=== PATIENT | female | born 1960 | race Caucasian/White ===

== ENCOUNTER 2016-04-11 16:43 | Inpatient (IN) | payer OTHER ==
[~2016-04-11] VITALS: Ht 160 cm; Wt 85.5 kg
[~2016-04-11 16:43] MED LIST: AMLODIPINE BESY10 MG PO; ASPIR 8181 M1 PO; ASPIRIN81 M2 PO; ATORVASTATIN CA40 MG PO; AUGMENTIN500 MG PO; Aspirin E.C. PO; BENTYL20 MG PO; BUPROPION HCL75 MG PO; CALCIUM ACETAT667 MG PO; CARAFATE1 GM PO; CARDIZEM CD120 MG PO; CARVEDILOL3.125 MG PO; CHANTIX0.5 MG PO; COLACE100 MG PO; COREG3.125 M1 PO; COUMADIN1 MG PO; CYANOCOBALAM1000 MCG PO; Colace PO; Coreg PO; DIALYVITE 3,001 EACH PO; DIALYVITE 801 TABLET PO; DIALYVITE TABL1 EACH PO; EMLA TP; EXCEDRIN MIGRA1 EAC3 PO; Ecotrin PO; FLAGYL500 MG PO; FUROSEMIDE40 MG PO; Folvite PO; GERD MEDICINE; LASIX20 MG PO; LIDOCAINE TD; LIDOCAINE-PRIL1 EACH TP; LIPITOR40 MG PO; LO-DOSE ASPIRIN81 M1 PO; LOPRESSOR25 MG PO; Lasix PO; Lipitor PO; MACROBID100 MG PO; MEDROL DOSE PACK PO; NITROSTAT0.4 MG SL; NORVASC10 MG PO; Norvasc PO; PANTOPRAZOLE SO40 MG PO; PRILOSEC OTC20 MG PO; PROTONIX40 MG PO; Phoslo PO; RENVELA800 MG PO; SENSIPAR30 MG PO; SENSIPAR60 MG PO; SENSIPAR90 MG PO; SODIUM BICARBO325 M1 PO; SODIUM BICARBO325 MG PO; SODIUM BICARBONATE; Sensipar PO; Sodium Bicarbonate PO; Topamax PO; VENTOLIN HFA18 GM IH; VITAMIN D2000 UNI1 PO; VITAMIN D250000 UNIT PO; VITAMIN D5000 INTUN PO; ZANTAC150 MG PO; ZITHROMAX Z-PA250 MG PO; ZOFRAN ODT8 MG PO; Zestril,Prinivil PO; Zocor PO
[2016-04-11 18:23] LABS: HEMATOCRIT 28.3 % (36.0-46.0); MCH 33.9 PG (29.0-34.0); MCHC 32.5 G/DL (30.0-36.0); MCV 104.4 FL (83-99); MEAN PLAT.VOLUME 9.3 uM^3 (9.5-12.4); PLATELET COUNT 213 K/uL (156-360); RBC DIS.WIDTH-CV 18.1 % (11.8-14.6); RBC DIS.WIDTH-SD 66.5 % (39-53); RED BLOOD COUNT 2.71 M/uL (3.80-5.20); WHITE BLOOD COUNT 9.5 K/uL (4.1-10.2)
[2016-04-11 18:34] LABS: CHLORIDE 91 mEq/L (99-109); POTASSIUM 4.6 mEq/L (3.7-5.4); SODIUM 136 mEq/L (136-147)
[2016-04-11 18:36] LABS: GLUCOSE 140 mg/dL (70-99)
[2016-04-11 18:37] LABS: ANION GAP 23 MEQ/L (2-14)
[2016-04-11 18:38] LABS: TOTAL BILIRUBIN 0.4 mg/dL (0.0-1.0)
[2016-04-11 18:39] LABS: ALKALINE PHOSPHATASE 63 IU/L (3-129)
[2016-04-11 18:40] LABS: GFR ESTIMATE (CALCULATED) 5 mL/min/
[2016-04-11 18:41] LABS: UREA NITROGEN (BUN) 79 mg/dL (9-23)
[2016-04-11 19:13] LABS: INFLUENZA A VIRAL ANTIGEN NEGATIVE; INFLUENZA B VIRAL ANTIGEN NEGATIVE
[2016-04-11 19:49] LABS: PROTHROMBIN TIME 21.3 (9.2-11.2)
[2016-04-11] MEDS ORDERED: COUMADIN1 MG PO (22:02)
[2016-04-11] MEDS ORDERED: LOPRESSOR25 MG PO (22:03)
[2016-04-11] MEDS ORDERED: DILTIAZEM 24HR120 MG PO (22:03)
[2016-04-11] MEDS ORDERED: COUMADIN5 MG PO (22:03)
[2016-04-11] MEDS ORDERED: NIACIN500 M4 PO (22:04)
[2016-04-11] MEDS ORDERED: TOPAMAX50 MG PO (22:04)
[2016-04-11 23:26] VITALS: BP 98/50
[2016-04-12 00:45] VITALS: BP 122/64
[2016-04-12 00:55] VITALS: BP 122/64
[2016-04-12 03:01] VITALS: BP 122/55
[2016-04-12 05:31] LABS: HEMATOCRIT 23.9 % (36.0-46.0); MCV 104.8 FL (83-99)
[2016-04-12 05:34] LABS: INTER. NORMALIZED RATIO 1.3; PROTHROMBIN TIME 13.3 (9.2-11.2)
[2016-04-12 05:39] LABS: ANION GAP 22 MEQ/L (2-14); CHLORIDE 89 MEQ/L (99-109); GFR ESTIMATE (CALCULATED) 4 mL/min/; POTASSIUM 3.8 MEQ/L (3.7-5.4); SAMPLE HEMOLYSIS CHECK 0; SAMPLE ICTERIC CHECK 0; SAMPLE LIPEMIA CHECK 0; SODIUM 138 MEQ/L (136-147); UREA NITROGEN (BUN) 85 mg/dL (9-23)
[2016-04-12 05:40] LABS: GLUCOSE 97 mg/dL (70-99)
[2016-04-12 06:30] LABS: POINT-OF-CARE METER ID UU14174225
[2016-04-12 14:49] LABS: FERRITIN 1979 NG/ML (10-291)
[2016-04-12 18:04] VITALS: BP 122/67
[2016-04-12 20:22] LABS: HEMATOCRIT 32.9 % (36.0-46.0)
[2016-04-12 20:47] VITALS: BP 116/56
[2016-04-12 23:28] VITALS: BP 109/57
[2016-04-13 04:00] VITALS: BP 109/75
[2016-04-13 07:08] LABS: HEMATOCRIT 31.6 % (36.0-46.0); MCH 33.1 PG (29.0-34.0); MCHC 33.2 G/DL (30.0-36.0); MCV 99.7 FL (83-99); MEAN PLAT.VOLUME 9.3 uM^3 (9.5-12.4); PLATELET COUNT 187 K/uL (156-360); RBC DIS.WIDTH-SD 70.4 % (39-53); RED BLOOD COUNT 3.17 M/uL (3.80-5.20); WHITE BLOOD COUNT 7.7 K/uL (4.1-10.2)
[2016-04-13 07:14] LABS: EOSINOPHIL (%) 5.1 % (0-5); EOSINOPHIL COUNT 0.4 K/uL (0-0.3); IMMATURE GRANULOCYTE (%) 0.4 % (0.0-0.7); IMMATURE GRANULOCYTE COUNT 0.3 K/uL; LYMPHOCYTE COUNT 1.6 K/uL (1.0-2.8); MONOCYTE (%) 8.1 % (3-12); MONOCYTE COUNT 0.6 K/uL (0-0.8); NEUTROPHIL (%) 65.7 % (45-76); NEUTROPHIL COUNT 5.1 K/uL (1.8-6.4)
[2016-04-13 07:35] LABS: ANION GAP 16 MEQ/L (2-14); CHLORIDE 96 MEQ/L (99-109); GFR ESTIMATE (CALCULATED) 7 mL/min/; GLUCOSE 103 mg/dL (70-99); POTASSIUM 4.4 MEQ/L (3.7-5.4); SAMPLE HEMOLYSIS CHECK 0; SAMPLE ICTERIC CHECK 0; SAMPLE LIPEMIA CHECK 0; SODIUM 141 MEQ/L (136-147)
[2016-04-13 07:36] LABS: UREA NITROGEN (BUN) 41 mg/dL (9-23)
[2016-04-13 08:28] VITALS: BP 134/62
[2016-04-13 11:04] LABS: POINT-OF-CARE METER ID UU14174225
[2016-04-13 12:08] VITALS: BP 123/69
[2016-04-13 14:19] LABS: MAGNESIUM 2.2 mg/dl (1.3-2.7)
[2016-04-13 15:00] VITALS: BP 130/74
[2016-04-13 20:48] VITALS: BP 144/71
[2016-04-13 23:38] VITALS: BP 145/79
[2016-04-14 04:48] VITALS: BP 141/72
[2016-04-14 07:11] LABS: HEMATOCRIT 30.8 % (36.0-46.0); MCH 31.1 PG (29.0-34.0); MCHC 31.2 G/DL (30.0-36.0); MCV 99.7 FL (83-99); MEAN PLAT.VOLUME 9.2 uM^3 (9.5-12.4); PLATELET COUNT 169 K/uL (156-360); RBC DIS.WIDTH-SD 71.5 % (39-53); RED BLOOD COUNT 3.09 M/uL (3.80-5.20); WHITE BLOOD COUNT 7.3 K/uL (4.1-10.2)
[2016-04-14 07:41] LABS: ANION GAP 16 MEQ/L (2-14); CHLORIDE 94 MEQ/L (99-109); GFR ESTIMATE (CALCULATED) 5 mL/min/; GLUCOSE 97 mg/dL (70-99); POTASSIUM 3.9 MEQ/L (3.7-5.4); SAMPLE HEMOLYSIS CHECK 0; SAMPLE ICTERIC CHECK 0; SAMPLE LIPEMIA CHECK 0; SODIUM 137 MEQ/L (136-147); UREA NITROGEN (BUN) 47 mg/dL (9-23)
[2016-04-14 07:55] VITALS: BP 143/69
[2016-04-14 11:03] VITALS: BP 147/70
[2016-04-14 20:06] VITALS: BP 136/71
[2016-04-15] VITALS: BP 146/73
[2016-04-15 04:11] VITALS: BP 145/72
[2016-04-15 06:17] LABS: HEMATOCRIT 31.5 % (36.0-46.0); MCH 31.9 PG (29.0-34.0); MCHC 31.4 G/DL (30.0-36.0); MCV 101.6 FL (83-99); MEAN PLAT.VOLUME 9.6 uM^3 (9.5-12.4); PLATELET COUNT 173 K/uL (156-360); RBC DIS.WIDTH-CV 19.6 % (11.8-14.6); RBC DIS.WIDTH-SD 71.2 % (39-53); WHITE BLOOD COUNT 7.8 K/uL (4.1-10.2)
[2016-04-15 06:49] LABS: ANION GAP 13 MEQ/L (2-14); CHLORIDE 97 MEQ/L (99-109); GFR ESTIMATE (CALCULATED) 8 mL/min/; GLUCOSE 106 mg/dL (70-99); SAMPLE HEMOLYSIS CHECK 0; SAMPLE ICTERIC CHECK 0; SAMPLE LIPEMIA CHECK 0; SODIUM 137 MEQ/L (136-147)
[2016-04-15 06:55] LABS: UREA NITROGEN (BUN) 21 mg/dL (9-23)
[2016-04-15 08:34] VITALS: BP 140/79
[2016-04-15] MEDS ORDERED: IRON325 MG PO (08:56)
[2016-04-15] MEDS ORDERED: RENVELA800 MG PO (08:56)
== END 2016-04-15 10:29 | disposition home or self-care (01) | DRG 377 ==
LOC: EME 16:43 → 5SOUTH 23:14 → EDOF 23:14 → 5SOUTH 04-12 00:31
PROVIDERS: Hospitalist; Internal Medicine Nephrology; Nurse Practitioner Family; Specialist
PROC: 30233N1 Transfusion of Nonautologous Red Blood Cells into Peripheral Vein, Percutaneous Approach (ICD-10-PCS; principal; 2016-04-12)
PROC: 30233K1 Transfusion of Nonautologous Frozen Plasma into Peripheral Vein, Percutaneous Approach (ICD-10-PCS; principal; 2016-04-12)
PROC: 5A1D60Z (ICD-10-PCS; principal; 2016-04-12)
PROC: 0DBN8ZZ Excision of Sigmoid Colon, Via Natural or Artificial Opening Endoscopic (ICD-10-PCS; principal; 2016-04-12)
PROC: 0DJ08ZZ Inspection of Upper Intestinal Tract, Via Natural or Artificial Opening Endoscopic (ICD-10-PCS; principal; 2016-04-12)
DX: K29.01 Acute gastritis with bleeding (principal); N18.6 End stage renal disease; I12.0 Hypertensive chronic kidney disease with stage 5 chronic kidney disease or end stage renal disease; I42.9 Cardiomyopathy, unspecified; E66.01 Morbid (severe) obesity due to excess calories; D63.1 Anemia in chronic kidney disease; J44.9 Chronic obstructive pulmonary disease, unspecified; G47.30 Sleep apnea, unspecified; K44.9 Diaphragmatic hernia without obstruction or gangrene; K29.80 Duodenitis without bleeding; I48.0 Paroxysmal atrial fibrillation; J02.9 Acute pharyngitis, unspecified; Z99.2 Dependence on renal dialysis; E78.5 Hyperlipidemia, unspecified; K22.70 Barrett's esophagus without dysplasia; F17.210 Nicotine dependence, cigarettes, uncomplicated; K63.5 Polyp of colon; K64.8 Other hemorrhoids; D50.0 Iron deficiency anemia secondary to blood loss (chronic); Z68.33 Body mass index [BMI] 33.0-33.9, adult; Z79.01 Long term (current) use of anticoagulants; Z90.49 Acquired absence of other specified parts of digestive tract
CPT/HCPCS: 71020; 80048; 80053; 80069; 82728; 82746; 82948; 83735; 84466; 85002; 85014; 85018; 85025; 85027; 85610; 86850; 86900; 86901; 86920; 87502; 88305; 93005; 94640; 99202; 99281; 99285; B4087; C9113; J2405; J3430; J7050; P9016; P9017

== ENCOUNTER 2016-06-03 19:57 | Emergency (ER) | payer OTHER ==
[~2016-06-03] VITALS: Ht 160 cm; Wt 88.3 kg
[~2016-06-03 19:57] MED LIST changes: +COUMADIN5 MG PO; +DILTIAZEM 24HR120 MG PO; +IRON325 MG PO; +NIACIN500 M4 PO; +TOPAMAX50 MG PO
[2016-06-03 22:30] VITALS: BP 132/68
== END 2016-06-03 22:30 | disposition home or self-care (01) ==
LOC: EME 19:57
DX: M79.651 Pain in right thigh (principal); M25.561 Pain in right knee; I12.0 Hypertensive chronic kidney disease with stage 5 chronic kidney disease or end stage renal disease; N18.6 End stage renal disease; Z99.2 Dependence on renal dialysis; E78.5 Hyperlipidemia, unspecified; Z87.891 Personal history of nicotine dependence
CPT/HCPCS: 93971; 99281; 99284

== ENCOUNTER 2016-09-14 16:32 | Inpatient (IN) | payer OTHER ==
[~2016-09-14] VITALS: Ht 160 cm; Wt 80.3 kg
[2016-09-14 17:06] LABS: HEMATOCRIT 24.8 % (36.0-46.0); MCH 32.1 PG (29.0-34.0); MCHC 31.5 G/DL (30.0-36.0); MEAN PLAT.VOLUME 9.7 uM^3 (9.5-12.4); PLATELET COUNT 272 K/uL (156-360); RBC DIS.WIDTH-CV 13.5 % (11.8-14.6); RBC DIS.WIDTH-SD 50.7 % (39-53); RED BLOOD COUNT 2.43 M/uL (3.80-5.20)
[2016-09-14 17:15] LABS: MCV 102.1 FL (83-99)
[2016-09-14 17:17] LABS: CHLORIDE 106 mEq/L (99-109); POTASSIUM 4.2 mEq/L (3.7-5.4); SODIUM 132 mEq/L (136-147)
[2016-09-14 17:19] LABS: GLUCOSE 143 mg/dL (70-99)
[2016-09-14 17:20] LABS: ANION GAP 10 MEQ/L (2-14)
[2016-09-14 17:23] LABS: GFR ESTIMATE (CALCULATED) 45 mL/min/
[2016-09-14 17:24] LABS: UREA NITROGEN (BUN) 13 mg/dL (9-23)
[2016-09-14] MEDS ORDERED: ONE-A-DAY ESSE1 EAC1 PO (20:41)
[2016-09-14] MEDS ORDERED: FOLIC ACID1 MG PO (20:42)
[2016-09-14] MEDS ORDERED: ELAVIL10 MG PO (20:42)
[2016-09-14] MEDS ORDERED: CLOTRIMAZOLE10 MG PO (20:42)
[2016-09-14] MEDS ORDERED: SLOW-MAG,MAG DE64 MG PO (20:43)
[2016-09-14] MEDS ORDERED: MYFORTIC360 MG PO (20:43)
[2016-09-14] MEDS ORDERED: VALCYTE450 MG PO (20:43)
[2016-09-14] MEDS ORDERED: SENNA8.6 MG PO (20:44)
[2016-09-14] MEDS ORDERED: ASTAGRAF XL1 MG PO (20:44)
[2016-09-14] MEDS ORDERED: DAPSONE100 MG PO (20:44)
[2016-09-14] MEDS ORDERED: COLACE100 MG PO (20:44)
[2016-09-14] MEDS ORDERED: NOVOLOG 10100 UNITS/ SC (20:45)
[2016-09-14] MEDS ORDERED: CALCITRIOL0.25 MCG PO (20:46)
[2016-09-14] MEDS ORDERED: BUTALB-APAP-CA1 EACH PO (20:46)
[2016-09-14] MEDS ORDERED: LO-DOSE ASPIRIN81 M2 PO (20:48)
[2016-09-15] VITALS (8 sets, daily range): BP systolic 123–161; BP diastolic 60–78
[2016-09-15 00:35] LABS: TOTAL BILIRUBIN 0.4 mg/dL (0.0-1.0)
[2016-09-15 00:36] LABS: ALKALINE PHOSPHATASE 131 IU/L (3-129)
[2016-09-15 00:39] LABS: DIRECT BILIRUBIN 0.2 mg/dL (0.0-0.3); URIC ACID 6.4 mg/dL (3.1-9.2)
[2016-09-15 06:23] LABS: HEMATOCRIT 20.2 % (36.0-46.0); MCH 32.1 PG (29.0-34.0); MCHC 31.2 G/DL (30.0-36.0); MCV 103.1 FL (83-99); MEAN PLAT.VOLUME 10.1 uM^3 (9.5-12.4); PLATELET COUNT 243 K/uL (156-360); RBC DIS.WIDTH-CV 13.6 % (11.8-14.6); RBC DIS.WIDTH-SD 51.8 % (39-53); RED BLOOD COUNT 1.96 M/uL (3.80-5.20); WHITE BLOOD COUNT 11.9 K/uL (4.1-10.2)
[2016-09-15 06:26] LABS: D-DIMER ELISA 3.58 mg/L FEU (< 0.57)
[2016-09-15 06:49] LABS: ANION GAP 9 MEQ/L (2-14); CHLORIDE 111 MEQ/L (99-109); GFR ESTIMATE (CALCULATED) 55 mL/min/; GLUCOSE 120 mg/dL (70-99); POTASSIUM 4.3 MEQ/L (3.7-5.4); SAMPLE HEMOLYSIS CHECK 0; SAMPLE ICTERIC CHECK 0; SAMPLE LIPEMIA CHECK 0; SODIUM 137 MEQ/L (136-147); UREA NITROGEN (BUN) 13 mg/dL (9-23)
[2016-09-15 14:56] LABS: IRON 13 MCG/DL (35-150)
[2016-09-15 18:53] LABS: ADD MIUA? YES; BILIRUBIN NEGATIVE; BLOOD NEGATIVE; COLOR YELLOW ((YELLOW)); GLUCOSE (STRIP) NEGATIVE; KETONES NEGATIVE; LEUKOCYTES NEGATIVE; NITRITE NEGATIVE; PROTEIN (STRIP) 30; SPECIFIC GRAVITY 1.024 (1.000-1.030); UROBILINOGEN 0.2 MG/DL (0.2-1.0)
[2016-09-15 18:54] LABS: ADD MIUA? YES; BILIRUBIN NEGATIVE; BLOOD NEGATIVE; COLOR YELLOW ((YELLOW)); GLUCOSE (STRIP) NEGATIVE; KETONES NEGATIVE; LEUKOCYTES NEGATIVE; NITRITE NEGATIVE; PROTEIN (STRIP) 30; SPECIFIC GRAVITY 1.024 (1.000-1.030); UROBILINOGEN 0.2 MG/DL (0.2-1.0)
[2016-09-15 19:05] LABS: BACTERIA RARE /HPF; EPITHELIAL CELLS 1+ /HPF; MUCUS TRACE /LPF; RED BLOOD CELLS 0-5 /HPF (0-5); WHITE BLOOD CELLS 0-5 /HPF (0-5)
[2016-09-16] VITALS (11 sets, daily range): BP systolic 102–159; BP diastolic 56–76
[2016-09-16 07:11] LABS: EOSINOPHIL (%) 0.2 % (0-5); HEMATOCRIT 24.3 % (36.0-46.0); IMMATURE GRANULOCYTE (%) 1.4 % (0.0-0.7); IMMATURE GRANULOCYTE COUNT 0.1 K/uL; INSTRUMENT ABS NEUTROPHIL CT 8.4 K/uL; LYMPHOCYTE COUNT 0.1 K/uL (1.0-2.8); MCH 32.4 PG (29.0-34.0); MCHC 32.5 G/DL (30.0-36.0); MCV 99.6 FL (83-99); MONOCYTE (%) 7.2 % (3-12); MONOCYTE COUNT 0.7 K/uL (0-0.8); NEUTROPHIL (%) 90.6 % (45-76); NEUTROPHIL COUNT 8.4 K/uL (1.8-6.4); RBC DIS.WIDTH-CV 15.1 % (11.8-14.6); RBC DIS.WIDTH-SD 54.8 % (39-53); WHITE BLOOD COUNT 9.3 K/uL (4.1-10.2)
[2016-09-16 07:12] LABS: RED BLOOD COUNT 2.44 M/uL (3.80-5.20)
[2016-09-16 07:24] LABS: ALKALINE PHOSPHATASE 118 IU/L (3-129); ANION GAP 9 MEQ/L (2-14); CHLORIDE 111 MEQ/L (99-109); GFR ESTIMATE (CALCULATED) 49 mL/min/; GLUCOSE 108 mg/dL (70-99); MAGNESIUM 0.9 mg/dl (1.3-2.7); POTASSIUM 3.9 MEQ/L (3.7-5.4); SAMPLE HEMOLYSIS CHECK 0; SAMPLE ICTERIC CHECK 0; SAMPLE LIPEMIA CHECK 0; SODIUM 136 MEQ/L (136-147); TOTAL BILIRUBIN 0.6 MG/DL (0.0-1.0); UREA NITROGEN (BUN) 13 mg/dL (9-23); URIC ACID 4.3 mg/dL (3.1-9.2)
[2016-09-16 07:36] LABS: MEAN PLAT.VOLUME 10.3 uM^3 (9.5-12.4); PLAT.SUFFICIENCY ADEQUATE
[2016-09-16 07:38] LABS: PLATELET COUNT 169 K/uL (156-360)
[2016-09-17 02:59] VITALS: BP 126/60
[2016-09-17 07:18] LABS: HEMATOCRIT 26.8 % (36.0-46.0); MCH 31.9 PG (29.0-34.0); MCHC 32.1 G/DL (30.0-36.0); MCV 99.3 FL (83-99); MEAN PLAT.VOLUME 10.2 uM^3 (9.5-12.4); RBC DIS.WIDTH-SD 55.1 % (39-53); WHITE BLOOD COUNT 11.9 K/uL (4.1-10.2)
[2016-09-17 07:19] LABS: PLATELET COUNT 223 K/uL (156-360)
[2016-09-17 07:33] LABS: ANION GAP 10 MEQ/L (2-14); CHLORIDE 111 MEQ/L (99-109); GFR ESTIMATE (CALCULATED) 41 mL/min/; GLUCOSE 135 mg/dL (70-99); MAGNESIUM 1.5 mg/dl (1.3-2.7); POTASSIUM 3.5 MEQ/L (3.7-5.4); SAMPLE HEMOLYSIS CHECK 0; SAMPLE ICTERIC CHECK 0; SAMPLE LIPEMIA CHECK 0; SODIUM 137 MEQ/L (136-147); UREA NITROGEN (BUN) 18 mg/dL (9-23)
[2016-09-17 09:59] VITALS: BP 130/63
[2016-09-17 16:33] VITALS: BP 149/72
== END 2016-09-17 22:25 | disposition short-term general hospital (02) | DRG 919 ==
LOC: EME 16:32 → 5EAST 23:01 → EDOF 23:01 → 5EAST 09-15 02:49
PROVIDERS: Emergency Medicine; Hospitalist; Internal Medicine; Internal Medicine Nephrology
DX: T81.32XA Disruption of internal operation (surgical) wound, not elsewhere classified, initial encounter (principal); I13.2 Hypertensive heart and chronic kidney disease with heart failure and with stage 5 chronic kidney disease, or end stage renal disease; A41.9 Sepsis, unspecified organism; N17.9 Acute kidney failure, unspecified; I48.0 Paroxysmal atrial fibrillation; E86.0 Dehydration; T86.13 Kidney transplant infection; N18.6 End stage renal disease; N99.842 Postprocedural seroma of a genitourinary system organ or structure following a genitourinary system procedure; Y83.0 Surgical operation with transplant of whole organ as the cause of abnormal reaction of the patient, or of later complication, without mention of misadventure at the time of the procedure; D53.9 Nutritional anemia, unspecified; D35.00 Benign neoplasm of unspecified adrenal gland; E66.01 Morbid (severe) obesity due to excess calories; E78.5 Hyperlipidemia, unspecified; E83.42 Hypomagnesemia; E87.2 Acidosis; G47.30 Sleep apnea, unspecified; I50.22 Chronic systolic (congestive) heart failure; I42.9 Cardiomyopathy, unspecified; J44.9 Chronic obstructive pulmonary disease, unspecified; K21.9 Gastro-esophageal reflux disease without esophagitis; Z82.0 Family history of epilepsy and other diseases of the nervous system; Z83.3 Family history of diabetes mellitus; Z87.891 Personal history of nicotine dependence; R91.1 Solitary pulmonary nodule; J90 Pleural effusion, not elsewhere classified
CPT/HCPCS: 71010; 74176; 78582; 80048; 80053; 80069; 80076; 80197 90; 80202; 81003; 82436; 82565; 82607; 82746; 83540; 83605; 83735; 84100; 84133; 84300; 84466; 84520; 84550; 85025; 85027; 85379; 86900; 86901; 86920; 87040; 87070; 87075; 87076; 87077; 87147; 87186; 87205; 87801; 99281; 99285; A9540; A9567; C9113; J1644; J2405; J2543; J2765; J3370; J3475; J7030; J7050; J7120; J7518; P9016

== ENCOUNTER 2017-02-20 18:30 | Emergency (ER) | payer OTHER ==
[~2017-02-20] VITALS: Ht 160 cm; Wt 77.7 kg
[~2017-02-20 18:30] MED LIST changes: +ASTAGRAF XL1 MG PO; +BUTALB-APAP-CA1 EACH PO; +CALCITRIOL0.25 MCG PO; +CLOTRIMAZOLE10 MG PO; +DAPSONE100 MG PO; +ELAVIL10 MG PO; +FOLIC ACID1 MG PO; +LO-DOSE ASPIRIN81 M2 PO; +MYFORTIC360 MG PO; +NOVOLOG 10100 UNITS/ SC; +ONE-A-DAY ESSE1 EAC1 PO; +SENNA8.6 MG PO; +SLOW-MAG,MAG DE64 MG PO; +VALCYTE450 MG PO
[2017-02-20 20:07] LABS: EOSINOPHIL COUNT 0.1 K/uL (0-0.3); HEMATOCRIT 34.6 % (36.0-46.0); IMMATURE GRANULOCYTE (%) 1.6 % (0.0-0.7); IMMATURE GRANULOCYTE COUNT 0.1 K/uL; INSTRUMENT ABS NEUTROPHIL CT 3.7 K/uL; LYMPHOCYTE COUNT 0.3 K/uL (1.0-2.8); MCH 28.7 PG (29.0-34.0); MCHC 30.1 G/DL (30.0-36.0); MCV 95.6 FL (83-99); MEAN PLAT.VOLUME 11.2 uM^3 (9.5-12.4); MONOCYTE (%) 8.1 % (3-12); MONOCYTE COUNT 0.4 K/uL (0-0.8); NEUTROPHIL (%) 82.5 % (45-76); NEUTROPHIL COUNT 3.7 K/uL (1.8-6.4); PLATELET COUNT 124 K/uL (156-360); RBC DIS.WIDTH-CV 13.8 % (11.8-14.6); RBC DIS.WIDTH-SD 48.6 % (39-53); RED BLOOD COUNT 3.62 M/uL (3.80-5.20); WHITE BLOOD COUNT 4.5 K/uL (4.1-10.2)
[2017-02-20 20:16] LABS: CHLORIDE 110 mEq/L (99-109); POTASSIUM 3.7 mEq/L (3.7-5.4); SODIUM 138 mEq/L (136-147)
[2017-02-20 20:17] LABS: GLUCOSE 116 mg/dL (70-99)
[2017-02-20 20:19] LABS: ANION GAP 9 MEQ/L (2-14)
[2017-02-20 20:21] LABS: GFR ESTIMATE (CALCULATED) 49 mL/min/
[2017-02-20 20:22] LABS: UREA NITROGEN (BUN) 9 mg/dL (9-23)
[2017-02-20] MEDS ORDERED: KEFLEX500 MG PO (20:29)
[2017-02-20 20:43] VITALS: BP 144/69
== END 2017-02-20 20:44 | disposition home or self-care (01) ==
LOC: EME 18:30
PROVIDERS: Physician Assistant
DX: L03.115 Cellulitis of right lower limb (principal); I13.0 Hypertensive heart and chronic kidney disease with heart failure and stage 1 through stage 4 chronic kidney disease, or unspecified chronic kidney disease; N18.9 Chronic kidney disease, unspecified; I50.9 Heart failure, unspecified; Z94.0 Kidney transplant status; J44.9 Chronic obstructive pulmonary disease, unspecified; E78.5 Hyperlipidemia, unspecified; Z99.2 Dependence on renal dialysis; K21.9 Gastro-esophageal reflux disease without esophagitis; Z85.41 Personal history of malignant neoplasm of cervix uteri; Z88.2 Allergy status to sulfonamides; Z88.5 Allergy status to narcotic agent; Z87.891 Personal history of nicotine dependence
CPT/HCPCS: 80048; 85025; 87040; 99281; 99284

== ENCOUNTER 2017-04-04 19:41 | Emergency (ER) | payer OTHER ==
[~2017-04-04] VITALS: Ht 160 cm; Wt 69.9 kg
[~2017-04-04 19:41] MED LIST changes: +KEFLEX500 MG PO
[2017-04-04 23:21] VITALS: BP 132/71
== END 2017-04-04 23:22 | disposition home or self-care (01) ==
LOC: EME 19:41
DX: S46.911A Strain of unspecified muscle, fascia and tendon at shoulder and upper arm level, right arm, initial encounter (principal); S66.911A Strain of unspecified muscle, fascia and tendon at wrist and hand level, right hand, initial encounter; X50.9XXA Other and unspecified overexertion or strenuous movements or postures, initial encounter; Z88.2 Allergy status to sulfonamides; Z88.5 Allergy status to narcotic agent; Z88.8 Allergy status to other drugs, medicaments and biological substances
CPT/HCPCS: 99281; 99283

== ENCOUNTER 2017-05-16 10:19 | Day surgery (SDC) | payer OTHER ==
[~2017-05-16] VITALS: Ht 157.5 cm; Wt 68.2 kg
[~2017-05-16 10:19] MED LIST changes: +ASTAGRAF XL5 MG PO; +MAGNESIUM250 MG PO; -SLOW-MAG,MAG DE64 MG PO
[2017-05-16] MEDS ORDERED: FLONASE ALLERG9.9 ML BOTH NARES (10:56)
[2017-05-16 11:06] VITALS: BP 119/58
[2017-05-16 15:25] VITALS: BP 147/63
[2017-05-16 16:10] VITALS: BP 145/68
== END 2017-05-16 16:15 | disposition home or self-care (01) ==
LOC: SDC 10:19
PROVIDERS: Obstetrics & Gynecology Gynecologic Oncology
DX: D07.1 Carcinoma in situ of vulva (principal); K62.82 Dysplasia of anus; L57.0 Actinic keratosis; I12.9 Hypertensive chronic kidney disease with stage 1 through stage 4 chronic kidney disease, or unspecified chronic kidney disease; N18.3 Chronic kidney disease, stage 3 (moderate); Z94.0 Kidney transplant status; D63.1 Anemia in chronic kidney disease; I48.91 Unspecified atrial fibrillation; I42.9 Cardiomyopathy, unspecified; K21.9 Gastro-esophageal reflux disease without esophagitis; R73.03 Prediabetes; G47.33 Obstructive sleep apnea (adult) (pediatric); Z87.891 Personal history of nicotine dependence; E78.5 Hyperlipidemia, unspecified; Z79.899 Other long term (current) drug therapy; Z92.25 Personal history of immunosuppression therapy
CPT/HCPCS: 82948; 86850; 86900; 86901; 87641; 88305; J0330; J0690; J2405; J3010; J7120; Q0175

== ENCOUNTER → 2017-09-04 | Outpatient (CLI) | payer OTHER ==
[~2017-09-04] MED LIST changes: +FLONASE ALLERG9.9 ML BOTH NARES; +IMITREX100 MG PO; +NORVASC5 MG PO
[2017-09-04 09:06] LABS: HEMATOCRIT 36.4 % (36.0-46.0); HEMOGLOBIN 11.3 G/DL (11.9-15.5); MCH 29.7 PG (29.0-34.0); MCV 95.5 FL (83-99); PLATELET COUNT 134 K/uL (156-360); RBC DIS.WIDTH-CV 14.4 % (11.8-14.6); RBC DIS.WIDTH-SD 50.6 % (39-53); RED BLOOD COUNT 3.81 M/uL (3.80-5.20)
[2017-09-04 09:08] LABS: WHITE BLOOD COUNT 1.7 K/uL (4.1-10.2)
[2017-09-04 09:16] LABS: INTER. NORMALIZED RATIO 1.1
[2017-09-04 09:18] LABS: PTT 30.6 SEC (25-37)
[2017-09-04 09:56] LABS: ABS NEUTROPHIL COUNT 0.9; ATYPICAL LYMPHOCYTE 4.3 %; EOSINOPHIL ABS CT 0.1; EOSINOPHILS 5.2 % (0-5.0); MONOCYTES 7.8 % (0-9.0); PLAT.SUFFICIENCY DECREASED; SEG.NEUTROPHILS 51.7 % (46.0-76.0)
[2017-09-06 16:20] LABS: NUMBER OF MARKERS 22; SPECIMEN TYPE BONE MARROW; SPECIMEN VIABILITY 85
== END | disposition home or self-care (01) ==
LOC: OPR 08:27 → EDSTATUS 09:00 → OPR 09:00
PROVIDERS: Internal Medicine; Radiology Diagnostic Radiology
DX: D72.819 Decreased white blood cell count, unspecified (principal); Z94.0 Kidney transplant status; G47.33 Obstructive sleep apnea (adult) (pediatric); I10 Essential (primary) hypertension; J98.4 Other disorders of lung; E78.5 Hyperlipidemia, unspecified; Z87.891 Personal history of nicotine dependence; Z79.82 Long term (current) use of aspirin
CPT/HCPCS: 77012; 85025; 85610; 85730; J3010

== ENCOUNTER 2017-10-02 19:42 | Inpatient (IN) | payer OTHER ==
[~2017-10-02] VITALS: Ht 157.5 cm; Wt 71.0 kg
[~2017-10-02 19:42] MED LIST changes: +TOPROL XL25 MG PO
[2017-10-02 20:42] LABS: CHLORIDE 105 mEq/L (99-109); POTASSIUM 3.7 mEq/L (3.7-5.4); SODIUM 133 mEq/L (136-147)
[2017-10-02 20:43] LABS: HEMATOCRIT 33.7 % (36.0-46.0); HEMOGLOBIN 11.2 G/DL (11.9-15.5); MCH 30.7 PG (29.0-34.0); MCHC 33.2 G/DL (30.0-36.0); MCV 92.3 FL (83-99); RBC DIS.WIDTH-CV 14.1 % (11.8-14.6); RBC DIS.WIDTH-SD 47.8 % (39-53); RED BLOOD COUNT 3.65 M/uL (3.80-5.20); WHITE BLOOD COUNT 4.4 K/uL (4.1-10.2)
[2017-10-02 20:57] LABS: ALBUMIN 3.4 g/dL (3.2-4.8)
[2017-10-02 21:00] LABS: GLUCOSE 118 mg/dL (70-99); TOTAL PROTEIN 6.9 g/dL (6.4-8.3)
[2017-10-02 21:03] LABS: ALKALINE PHOSPHATASE 148 IU/L (3-129); CREATININE 2.4 mg/dL (0.6-1.3); GFR ESTIMATE (CALCULATED) 22 mL/min/
[2017-10-02 21:04] LABS: UREA NITROGEN (BUN) 36 mg/dL (9-23)
[2017-10-02 21:05] LABS: AST (GOT) 26 IU/L (2-34)
[2017-10-02 21:06] LABS: ALT (GPT) 27 IU/L (3-49)
[2017-10-02 21:28] LABS: PLAT.SUFFICIENCY VERY DECREASED
[2017-10-02 21:34] LABS: PLATELET COUNT 68 K/uL (156-360)
[2017-10-03 00:09] LABS: APPEARANCE CLOUDY ((CLEAR)); BILIRUBIN NEGATIVE; BLOOD MODERATE; COLOR AMBER ((YELLOW)); GLUCOSE (STRIP) NEGATIVE; KETONES NEGATIVE; LEUKOCYTES SMALL; NITRITE NEGATIVE; PROTEIN (STRIP) 100; SPECIFIC GRAVITY 1.013 (1.000-1.030); UROBILINOGEN 0.2 MG/DL (0.2-1.0)
[2017-10-03 00:24] LABS: BACTERIA 1+ /HPF; EPITHELIAL CELLS RARE /HPF; HYALINE CASTS 0-5 /LPF; MUCUS TRACE /LPF; UCUL ADDED? NO; WHITE BLOOD CELLS 0-5 /HPF (0-5)
[2017-10-03 01:40] LABS: C DIFF TOXIN NEGATIVE (NEGATIVE)
[2017-10-03 04:01] LABS: HEMATOCRIT 29.2 % (36.0-46.0); HEMOGLOBIN 9.6 G/DL (11.9-15.5); MCH 30.1 PG (29.0-34.0); MCHC 32.9 G/DL (30.0-36.0); MCV 91.5 FL (83-99); PLATELET COUNT 69 K/uL (156-360); RBC DIS.WIDTH-CV 14.3 % (11.8-14.6); RED BLOOD COUNT 3.19 M/uL (3.80-5.20); WHITE BLOOD COUNT 3.3 K/uL (4.1-10.2)
[2017-10-03 04:10] LABS: ALBUMIN 2.9 g/dL (3.2-4.8)
[2017-10-03 04:11] LABS: CHLORIDE 107 mEq/L (99-109); POTASSIUM 3.3 mEq/L (3.7-5.4); SODIUM 132 mEq/L (136-147)
[2017-10-03 04:13] LABS: GLUCOSE 113 mg/dL (70-99)
[2017-10-03 04:16] LABS: PHOSPHORUS 2.4 mg/dL (2.5-4.9)
[2017-10-03 04:17] LABS: CREATININE 2.2 mg/dL (0.6-1.3); GFR ESTIMATE (CALCULATED) 24 mL/min/
[2017-10-03 04:18] LABS: UREA NITROGEN (BUN) 37 mg/dL (9-23)
[2017-10-03 04:20] VITALS: BP 120/58
[2017-10-03 08:10] VITALS: BP 143/65
[2017-10-03 11:54] VITALS: BP 148/67
[2017-10-03 15:49] VITALS: BP 136/60
[2017-10-03 20:00] VITALS: BP 169/75
[2017-10-03 23:21] VITALS: BP 175/70
[2017-10-04 03:27] VITALS: BP 194/86
[2017-10-04 05:30] VITALS: BP 172/86
[2017-10-04 08:08] VITALS: BP 158/72
[2017-10-04 08:26] LABS: HEMATOCRIT 30.3 % (36.0-46.0); HEMOGLOBIN 9.6 G/DL (11.9-15.5); MCH 29.4 PG (29.0-34.0); MCHC 31.7 G/DL (30.0-36.0); MCV 92.9 FL (83-99); PLATELET COUNT 74 K/uL (156-360); RBC DIS.WIDTH-CV 14.6 % (11.8-14.6); RBC DIS.WIDTH-SD 49.4 % (39-53); RED BLOOD COUNT 3.26 M/uL (3.80-5.20); WHITE BLOOD COUNT 2.3 K/uL (4.1-10.2)
[2017-10-04 08:31] LABS: ALBUMIN 2.8 G/DL (3.2-4.8); CHLORIDE 107 MEQ/L (99-109); CREATININE 1.9 MG/DL (0.6-1.3); GFR ESTIMATE (CALCULATED) 29 mL/min/; GLUCOSE 113 mg/dL (70-99); IRON 39 MCG/DL (35-150); MAGNESIUM 1.5 mg/dl (1.3-2.7); PHOSPHORUS 3.1 mg/dL (2.5-4.9); POTASSIUM 3.9 MEQ/L (3.7-5.4); SODIUM 135 MEQ/L (136-147); TRANSFERRIN (TIBC) 136.8 mg/dL (215-380); TRANSFERRIN SATUR. 29 % (20-55); UREA NITROGEN (BUN) 36 mg/dL (9-23)
[2017-10-04 09:18] LABS: ABS NEUTROPHIL COUNT 1.7; ANISOCYTOSIS 1+; EOSINOPHIL ABS CT 0.2; EOSINOPHILS 9.6 % (0-5.0); MACROCYTES 1+; MONOCYTES 10.6 % (0-9.0); PLAT.SUFFICIENCY DECREASED; POIKILOCYTOSIS 1+
[2017-10-04 09:20] LABS: LYMPHOCYTES 7.7 % (15.0-45.0); SEG.NEUTROPHILS 72.1 % (46.0-76.0)
[2017-10-04 12:29] VITALS: BP 150/66
[2017-10-04 16:10] VITALS: BP 134/65
[2017-10-04 16:10] LABS: FOLIC ACID (FOLATE) > 22.0 NG/ML (5.0-22.0)
[2017-10-04 20:20] VITALS: BP 162/70
[2017-10-05 00:26] VITALS: BP 168/75
[2017-10-05 04:00] VITALS: BP 156/70
[2017-10-05 06:01] LABS: HEMATOCRIT 28.5 % (36.0-46.0); HEMOGLOBIN 9.1 G/DL (11.9-15.5); MCH 29.3 PG (29.0-34.0); MCHC 31.9 G/DL (30.0-36.0); MCV 91.6 FL (83-99); PLATELET COUNT 70 K/uL (156-360); RBC DIS.WIDTH-CV 14.7 % (11.8-14.6); RBC DIS.WIDTH-SD 49.5 % (39-53); RED BLOOD COUNT 3.11 M/uL (3.80-5.20)
[2017-10-05 06:08] LABS: WHITE BLOOD COUNT 1.7 K/uL (4.1-10.2)
[2017-10-05 06:18] LABS: ALBUMIN 2.8 G/DL (3.2-4.8); CHLORIDE 107 MEQ/L (99-109); CREATININE 1.8 MG/DL (0.6-1.3); GFR ESTIMATE (CALCULATED) 31 mL/min/; GLUCOSE 92 mg/dL (70-99); MAGNESIUM 1.4 mg/dl (1.3-2.7); PHOSPHORUS 2.6 mg/dL (2.5-4.9); POTASSIUM 3.7 MEQ/L (3.7-5.4); SODIUM 137 MEQ/L (136-147); UREA NITROGEN (BUN) 34 mg/dL (9-23)
[2017-10-05 07:11] VITALS: BP 164/72
[2017-10-05 07:13] LABS: ANISOCYTOSIS 1+; BASOPHILS 2.7 %; EOSINOPHIL ABS CT 0.1; EOSINOPHILS 5.5 % (0-5.0); LYMPHOCYTES 24.5 % (15.0-45.0); MONOCYTES 10.9 % (0-9.0); PLAT.SUFFICIENCY DECREASED; POLYCHROMASIA 1+; SEG.NEUTROPHILS 56.4 % (46.0-76.0); SMUDGE CELLS 0.9
[2017-10-05 15:48] VITALS: BP 158/74
[2017-10-06 00:02] VITALS: BP 158/98
[2017-10-06 05:59] LABS: IMM.RETIC FRACTION 12.4 % (3-19); RETIC HGB EQUIVALENT 29.6 (28-36); RETICULOCYTE COUNT 0.9 % (0.5-1.8)
[2017-10-06 06:20] LABS: ALBUMIN 2.8 G/DL (3.2-4.8); CHLORIDE 108 MEQ/L (99-109); CREATININE 1.8 MG/DL (0.6-1.3); GFR ESTIMATE (CALCULATED) 31 mL/min/; GLUCOSE 108 mg/dL (70-99); LACTATE DEHYDROGENASE 264 IU/L (20-246); PHOSPHORUS 2.9 mg/dL (2.5-4.9); POTASSIUM 3.9 MEQ/L (3.7-5.4); SODIUM 137 MEQ/L (136-147); UREA NITROGEN (BUN) 31 mg/dL (9-23)
[2017-10-06 07:07] VITALS: BP 187/77
[2017-10-06 07:08] LABS: ANISOCYTOSIS 1+
[2017-10-06 07:10] LABS: ABS NEUTROPHIL COUNT 0.9; BASOPHILS 1.8 %; EOSINOPHIL ABS CT 0.3; EOSINOPHILS 17.4 % (0-5.0); HEMATOCRIT 27.1 % (36.0-46.0); HEMOGLOBIN 8.7 G/DL (11.9-15.5); LYMPHOCYTES 19.1 % (15.0-45.0); MCH 29.5 PG (29.0-34.0); MCHC 32.1 G/DL (30.0-36.0); MCV 91.9 FL (83-99); MONOCYTES 10.4 % (0-9.0); PLATELET COUNT 76 K/uL (156-360); RBC DIS.WIDTH-CV 14.8 % (11.8-14.6); RED BLOOD COUNT 2.95 M/uL (3.80-5.20); SEG.NEUTROPHILS 51.3 % (46.0-76.0); WHITE BLOOD COUNT 1.7 K/uL (4.1-10.2)
[2017-10-06 15:05] VITALS: BP 188/84
[2017-10-06 16:53] VITALS: BP 138/62
[2017-10-06 20:20] VITALS: BP 169/72
[2017-10-07 00:41] VITALS: BP 180/94
[2017-10-07 03:00] VITALS: BP 164/72
[2017-10-07 06:38] LABS: ALBUMIN 2.7 G/DL (3.2-4.8); CHLORIDE 111 MEQ/L (99-109); CREATININE 1.4 MG/DL (0.6-1.3); GFR ESTIMATE (CALCULATED) 41 mL/min/; GLUCOSE 109 mg/dL (70-99); PHOSPHORUS 3.4 mg/dL (2.5-4.9); POTASSIUM 4.1 MEQ/L (3.7-5.4); SODIUM 139 MEQ/L (136-147); UREA NITROGEN (BUN) 21 mg/dL (9-23)
[2017-10-07 07:06] VITALS: BP 152/70
[2017-10-07 08:53] LABS: HEMATOCRIT 24.6 % (36.0-46.0); HEMOGLOBIN 7.9 G/DL (11.9-15.5); MCH 29.8 PG (29.0-34.0); MCHC 32.1 G/DL (30.0-36.0); MCV 92.8 FL (83-99); PLATELET COUNT 103 K/uL (156-360); RBC DIS.WIDTH-CV 15.2 % (11.8-14.6); RED BLOOD COUNT 2.65 M/uL (3.80-5.20); WHITE BLOOD COUNT 1.7 K/uL (4.1-10.2)
[2017-10-07 15:07] VITALS: BP 171/72
[2017-10-07 17:07] VITALS: BP 158/70
[2017-10-07 23:30] VITALS: BP 164/82
[2017-10-08 06:18] LABS: HEMATOCRIT 24.5 % (36.0-46.0); HEMOGLOBIN 7.8 G/DL (11.9-15.5); MCH 29.7 PG (29.0-34.0); MCHC 31.8 G/DL (30.0-36.0); MCV 93.2 FL (83-99); RBC DIS.WIDTH-CV 15.3 % (11.8-14.6); RBC DIS.WIDTH-SD 52.4 % (39-53); RED BLOOD COUNT 2.63 M/uL (3.80-5.20)
[2017-10-08 06:22] LABS: PLATELET COUNT 137 K/uL (156-360)
[2017-10-08 06:38] LABS: ALBUMIN 2.8 G/DL (3.2-4.8); CHLORIDE 108 MEQ/L (99-109); CREATININE 1.3 MG/DL (0.6-1.3); GFR ESTIMATE (CALCULATED) 45 mL/min/; GLUCOSE 103 mg/dL (70-99); PHOSPHORUS 2.8 mg/dL (2.5-4.9); POTASSIUM 4.7 MEQ/L (3.7-5.4); SODIUM 137 MEQ/L (136-147); UREA NITROGEN (BUN) 14 mg/dL (9-23)
[2017-10-08 06:43] LABS: ABS NEUTROPHIL COUNT 1.4; ACANTHOCYTES 1+; EOSINOPHIL ABS CT 0.1; LYMPHOCYTES 15.1 % (15.0-45.0); MONOCYTES 9.7 % (0-9.0); NUCLEATED RBC'S 0.9; OVALOCYTES 1+; PLAT.SUFFICIENCY DECREASED; SEG.NEUTROPHILS 68.1 % (46.0-76.0); TEAR DROP CELLS 1+
[2017-10-08 06:45] LABS: EOSINOPHILS 7.1 % (0-5.0)
[2017-10-08 07:32] VITALS: BP 191/76
[2017-10-08 11:56] VITALS: BP 141/71
[2017-10-08 15:25] VITALS: BP 132/63
[2017-10-08 20:25] VITALS: BP 164/76
[2017-10-08 23:16] VITALS: BP 157/72
[2017-10-09 05:53] VITALS: BP 159/78
[2017-10-09 06:42] LABS: ALBUMIN 2.8 G/DL (3.2-4.8); CHLORIDE 109 MEQ/L (99-109); CREATININE 1.3 MG/DL (0.6-1.3); GFR ESTIMATE (CALCULATED) 45 mL/min/; GLUCOSE 103 mg/dL (70-99); PHOSPHORUS 3.1 mg/dL (2.5-4.9); POTASSIUM 5.2 MEQ/L (3.7-5.4); SODIUM 136 MEQ/L (136-147); UREA NITROGEN (BUN) 12 mg/dL (9-23)
[2017-10-09 06:49] LABS: ABS NEUTROPHIL COUNT 1.3; ATYPICAL LYMPHOCYTE 2.6 %; EOSINOPHIL ABS CT 0.2; EOSINOPHILS 8.7 % (0-5.0); HEMATOCRIT 25.4 % (36.0-46.0); HEMOGLOBIN 7.7 G/DL (11.9-15.5); LYMPHOCYTES 24.3 % (15.0-45.0); MCH 28.6 PG (29.0-34.0); MCHC 30.3 G/DL (30.0-36.0); MCV 94.4 FL (83-99); PLAT.SUFFICIENCY ADEQUATE; PLATELET COUNT 168 K/uL (156-360); RBC DIS.WIDTH-CV 15.5 % (11.8-14.6); RBC DIS.WIDTH-SD 53.6 % (39-53); RED BLOOD COUNT 2.69 M/uL (3.80-5.20); SEG.NEUTROPHILS 57.4 % (46.0-76.0); WHITE BLOOD COUNT 2.2 K/uL (4.1-10.2)
[2017-10-09 07:17] VITALS: BP 169/75
[2017-10-09 15:38] VITALS: BP 153/72
[2017-10-10 00:03] VITALS: BP 165/70
[2017-10-10 05:58] LABS: HEMATOCRIT 25.5 % (36.0-46.0); HEMOGLOBIN 7.8 G/DL (11.9-15.5); MCH 29.4 PG (29.0-34.0); MCHC 30.6 G/DL (30.0-36.0); MCV 96.2 FL (83-99); NRBC (%) 1.3 /100 WBC (0-0); PLATELET COUNT 204 K/uL (156-360); RBC DIS.WIDTH-CV 15.7 % (11.8-14.6); RBC DIS.WIDTH-SD 54.5 % (39-53); RED BLOOD COUNT 2.65 M/uL (3.80-5.20); WHITE BLOOD COUNT 2.4 K/uL (4.1-10.2)
[2017-10-10 06:19] LABS: CHLORIDE 110 MEQ/L (99-109); CREATININE 1.5 MG/DL (0.6-1.3); GFR ESTIMATE (CALCULATED) 38 mL/min/; GLUCOSE 119 mg/dL (70-99); MAGNESIUM 1.5 mg/dl (1.3-2.7); PHOSPHORUS 3.4 mg/dL (2.5-4.9); POTASSIUM 5.2 MEQ/L (3.7-5.4); SODIUM 137 MEQ/L (136-147); UREA NITROGEN (BUN) 14 mg/dL (9-23)
[2017-10-10 06:33] LABS: ABS NEUTROPHIL COUNT 1.5; ATYPICAL LYMPHOCYTE 1.7 %; BASOPHILS 1.7 %; EOSINOPHIL ABS CT 0.1; EOSINOPHILS 4.4 % (0-5.0); GIANT PLATELETS 2+; LYMPHOCYTES 14.8 % (15.0-45.0); METAMYELOCYTES 0.9 %; NUCLEATED RBC'S 0.9; PLAT.SUFFICIENCY ADEQUATE; SEG.NEUTROPHILS 63.5 % (46.0-76.0)
[2017-10-10 07:43] VITALS: BP 188/82
[2017-10-10] MEDS ORDERED: AMLODIPINE BESYL5 MG PO (11:27)
[2017-10-10] MEDS ORDERED: LABETALOL HCL200 MG PO (11:27)
[2017-10-10] MEDS ORDERED: MYCOPHENOLIC A180 MG PO (11:29)
[2017-10-11 14:17] LABS: Flow Clinical Information NOT PROVIDED (()); Flow Number of Markers 22 (()); Flow Spec Viability 97 % (()); Flow Specimen Type PERIPHERAL BLOOD (())
== END 2017-10-10 12:56 | disposition home or self-care (01) | DRG 699 ==
LOC: EME 19:42 → 5SOUTH 10-03 03:05 → EDOF 10-03 03:05 → ENRESERV 10-03 03:09 → 5SOUTH 10-03 03:59
PROVIDERS: Emergency Medicine; Hospitalist; Internal Medicine Nephrology; Physician Assistant
DX: T86.13 Kidney transplant infection (principal); N10 Acute pyelonephritis; N17.9 Acute kidney failure, unspecified; Y83.0 Surgical operation with transplant of whole organ as the cause of abnormal reaction of the patient, or of later complication, without mention of misadventure at the time of the procedure; B96.20 Unspecified Escherichia coli [E. coli] as the cause of diseases classified elsewhere; J44.9 Chronic obstructive pulmonary disease, unspecified; N18.3 Chronic kidney disease, stage 3 (moderate); I13.2 Hypertensive heart and chronic kidney disease with heart failure and with stage 5 chronic kidney disease, or end stage renal disease; I50.22 Chronic systolic (congestive) heart failure; D61.818 Other pancytopenia; I42.9 Cardiomyopathy, unspecified; E87.2 Acidosis; E87.6 Hypokalemia; G47.33 Obstructive sleep apnea (adult) (pediatric); E78.5 Hyperlipidemia, unspecified; E87.1 Hypo-osmolality and hyponatremia; D63.8 Anemia in other chronic diseases classified elsewhere; E86.0 Dehydration; F17.200 Nicotine dependence, unspecified, uncomplicated
CPT/HCPCS: 74176; 80053; 80069; 80197 90; 81003; 82436; 82607; 82746; 83540; 83615; 83735; 84133; 84300; 84466; 84550; 85025; 85027; 85046; 86645 90; 86880; 87040; 87077; 87086; 87177; 87186; 87329; 87493; 87506; 99281; 99285; J0360; J0696; J0881; J1200; J1644; J2765; J3475; J3480; J7030; J7512; J7518; S0030